=== PATIENT | male | born 1950 | race Caucasian/White ===

== ENCOUNTER → 2017-01-25 | Outpatient (CLI) | payer OTHER, MEDICARE ==
[~2017-01-25] MED LIST: GADOBUTROL 10 ML VIAL IVP ONE
== END ==
LOC: FIMAGING 12:25
PROVIDERS: ATTEND Internal Medicine Hematology & Oncology
DX: R60.0 Localized edema (principal); R93.7 Abnormal findings on diagnostic imaging of other parts of musculoskeletal system; M51.36 Other intervertebral disc degeneration, lumbar region; M47.896 Other spondylosis, lumbar region; Z85.79 Personal history of other malignant neoplasms of lymphoid, hematopoietic and related tissues
CPT/HCPCS: 73723; A9585

== ENCOUNTER → 2017-09-16 | Outpatient (CLI) | payer OTHER, MEDICARE | LOC: FIMAGING 11:08 → FLAB 11:08 → EDSTATUS 11:11 | PROVIDERS: ATTEND Family Medicine | DX: I51.7 Cardiomegaly (principal); I48.91 Unspecified atrial fibrillation; C90.00 Multiple myeloma not having achieved remission ==

== ENCOUNTER → 2017-11-10 | Outpatient (CLI) | payer OTHER, MEDICARE | LOC: FIMAGING 11:31 | PROVIDERS: ATTEND Internal Medicine Hematology & Oncology | DX: Z13.820 Encounter for screening for osteoporosis (principal); M81.0 Age-related osteoporosis without current pathological fracture; C90.02 Multiple myeloma in relapse ==

== ENCOUNTER → 2017-12-10 | Outpatient (CLI) | payer OTHER, MEDICARE | LOC: BHFA 09:15 | PROVIDERS: ATTEND Internal Medicine Cardiovascular Disease | DX: I48.91 Unspecified atrial fibrillation (principal) ==

== ENCOUNTER → 2018-01-04 | Outpatient (CLI) | payer OTHER, MEDICARE | LOC: BHFA 10:45 | PROVIDERS: ATTEND Internal Medicine Cardiovascular Disease | DX: I48.91 Unspecified atrial fibrillation (principal) ==

== ENCOUNTER → 2018-04-16 | Outpatient (CLI) | payer OTHER, MEDICARE | LOC: BHFA 09:30 | PROVIDERS: ATTEND Internal Medicine Cardiovascular Disease | DX: I48.91 Unspecified atrial fibrillation (principal) ==

== ENCOUNTER → 2018-04-29 | Outpatient (CLI) | payer OTHER, MEDICARE | LOC: FIMAGING 12:44 | PROVIDERS: ATTEND Internal Medicine Hematology & Oncology | DX: M75.111 Incomplete rotator cuff tear or rupture of right shoulder, not specified as traumatic (principal); M75.51 Bursitis of right shoulder; D17.79 Benign lipomatous neoplasm of other sites; M75.31 Calcific tendinitis of right shoulder; M24.111 Other articular cartilage disorders, right shoulder | CPT/HCPCS: 73223; A9585 ==

== ENCOUNTER → 2018-08-30 | Outpatient (CLI) | payer OTHER, MEDICARE | LOC: BHFA 13:00 | PROVIDERS: ATTEND Internal Medicine Cardiovascular Disease | DX: I48.91 Unspecified atrial fibrillation (principal) | CPT/HCPCS: 78452; 93017; A9500; J2785 ==

== ENCOUNTER 2018-10-04 08:20 | Observation (INO) | payer OTHER, MEDICARE ==
[2018-10-04] MEDS ORDERED: diphenhydrAMINE 25 MG CAP PO ONE ×2 (08:26→08:41)
[2018-10-04] MEDS ORDERED: NS 1,000 ML IV ONE (08:26)
[2018-10-04] MEDS ORDERED: FAMOTIDINE 20 MG TAB PO ONE (08:26)
[2018-10-04] MEDS ORDERED: ASPIRIN EC 325 MG TAB PO ONE ×2 (08:26→08:41)
[2018-10-04] MEDS ORDERED: DIAZEPAM 5 MG TAB PO ONE (08:26)
[2018-10-04] MEDS ORDERED: FAMOTIDINE 20 MG TAB ONE (08:41)
[2018-10-04] MEDS ORDERED: DIAZEPAM 5 MG TAB ONE (08:41)
[2018-10-04 09:03] LABS: PLATELET COUNT 83 10^3/uL (150-400)
--- NOTE | 2018-10-04 09:11 | PDHPUP ---
History & Physical Update H&P update statement: This history and physical update is based on an assessment of the patient which was completed after admission or registration (within 24 hours), but prior to the surgery/procedure. H&P update: H&P reviewed & patient examined, no change in patient's condition since H&P completed
[2018-10-04 09:21] LABS: PROTIME(PATIENT) 12.8 SEC (12.0-15.0)
[2018-10-04] MEDS ORDERED: LIDOCAINE 1% 300 MG/30 ML SDV ONE (09:30)
[2018-10-04] MEDS ORDERED: IOPAMIDOL (ISOVUE-370) 150 ML BTL IV ONE (09:30)
[2018-10-04] MEDS ORDERED: MIDAZOLAM 2 MG/2 ML VIAL ONE ×2 (09:30→10:55)
[2018-10-04] MEDS ORDERED: fentaNYL 100 MCG/2 ML INJ ONE (09:30)
--- NOTE | 2018-10-04 09:33 | PDPROPOC ---
Sedation Plan of Care Sedation Plan of Care: vital signs stable, mental status noted, patient educated of risks, benefits, alternatives, patient can tolerate sedation ASA Classification: ASA 2 Planned drugs: fentanyl, midazolam Mallampati Score: Class 2 Mallampati Reference Image: Patient passed 3-3-2 rule?: Yes
[2018-10-04] MEDS ORDERED: BIVALIRUDIN 250 MG/5 ML VIAL IV ONE (10:27)
[2018-10-04] MEDS ORDERED: CLOPIDOGREL BISULFATE 75 MG TAB ONE (10:43)
[2018-10-04] MEDS ORDERED: ATROPINE SULFATE 1 MG/10 ML SYR ONE (10:49)
[2018-10-04] MEDS ORDERED: NITROGLYCERIN 1,500 MCG/15 ML VIAL MISC ONE (11:01)
--- NOTE | 2018-10-04 11:27 | PDDXCAT ---
Diagnostic Cath Note - . Date: 10/04/18 Director Of Supply Chain: Eli Indication: other (Chronotropic incompetence. Lqfw-di-[id number] risk nuclear stress test with inferior ischemia) - Procedure Access: right groin Procedure: left heart catheterization, coronary angiography, left ventriculogram - Materials Left Heart Cath size: 6F - Findings-Left Heart Catheterization LM: The left main is normal and bifurcates into the LAD and left circumflex. There is no significant coronary disease in left main LAD: Lad is a large vessel reaching the apex. There is 1 principal 1st diagonal and 3 additional smaller diagonal vessels. No significant disease in the LAD or its branches LCX: RCA is a medium caliber vessel. There is a single large obtuse marginal with 2 subbranches. At the ostium of the sub branch there was a 50% stenosis. The remainder of the left circumflex is normal RCA: The RCA is dominant. It is totally occluded in its midportion. There is a large RV marginal branch. EDP: 21 LVEF: 65% Wall motion: Normal - Findings-Right Heart Catheterization AO: 130/54. There is no aortic stenosis upon pullback from the left ventricle to the aorta. Complications: None Estimated blood loss: <50ml Closure method: Angioseal Assessment: Her moderate obtuse marginal disease and total occlusion of the mid RCA. Interventional consult with Dr. Sibley
[2018-10-04] MEDS ORDERED: ATROPINE SULFATE 1 MG/10 ML SYR IVP PRN (11:44)
[2018-10-04] MEDS ORDERED: OXYCODONE/APAP 5/325 TAB PO PRN (11:44)
[2018-10-04] MEDS ORDERED: ONDANSETRON 4 MG/2 ML VIAL IVP PRN (11:44)
[2018-10-04] MEDS ORDERED: NITROGLYCERIN 0.4 MG BTL SL PRN (11:44)
[2018-10-04] MEDS ORDERED: HYDROCODONE/APAP 5/325 TAB PO PRN (11:44)
--- NOTE | 2018-10-04 13:58 | CPEKG ---
Test Reason : OPEN Blood Pressure : / mmHG Vent. Rate : 029 BPM Atrial Rate : 000 BPM P-R Int : 066 ms QRS Dur : 149 ms QT Int : 682 ms P-R-T Axes : 000 104 -57 degrees QTc Int : 474 ms A-flutter/fibrillation w/ complete AV block Right bundle branch block ST depression, consider ischemia, diffuse lds Confirmed by Robbie Jimenze ([id number]) on 10/04/2018 1:58:01 PM Referred By: Michelle Benitez Confirmed By:Robbie Jimenez
[2018-10-04] MEDS: ATORVASTATIN CALCIUM 40 MG TAB PO SCH (16:35)
--- NOTE | 2018-10-04 17:00 | CPIP ---
[f rep st] INVASIVE CARDIAC PROCEDURE DATE OF PROCEDURE: 10/04/2018 INDICATION FOR PROCEDURE: Positive stress test. PROCEDURE: 1. Right coronary artery angiography. 2. Percutaneous coronary intervention of mid right coronary artery utilizing Synergy 2.25 x 20 and 3 .0 x 16 mm drug-eluting stents. HISTORY: Briefly, this is a 68-year-old male with history of recent positive stress testing, which s howed inferior wall ischemia. Patient underwent diagnostic catheterization by Dr. Michelle Benitez, which s howed what appeared to be 100% occluded mid RCA. Given this finding, patient was consented for percut aneous intervention. DESCRIPTION OF PROCEDURE: After informed consent, and utilizing the same 6-Japanese sheath in the [facility] groin, a JR4 6-Japanese guide catheter was advanced to the right coronary artery. Imaging of the left coronary artery should be referred to Dr. Michelle Benitez's note for full delineation of underlying anato my. A Choice PT wire was advanced after patient was administered an Angiomax bolus and drip and 600 P lavix p.o. The wire actually surprisingly made it through the mid RCA and was placed into a distal ve ssel. We tried predilatation with a 2.0 x 12 balloon multiple times; however, there was still no flow going through the mid RCA. We then used an export catheter for thrombectomy; however, this again did not resolve any flow into the mid RCA. We then proceeded with a 2.0 x12 Euphora balloon, which was a ble to go deeper into the vessel and did multiple sequential inflations. After this was performed, we then revealed what appeared to be a 90% narrowing in the mid RCA going into area of trifurcating RPD , RPLs, all of which were diffusely diseased. Again, we assumed this could be spasm versus diffuse disease, so we decided to proceed now with that vessel was open and we had a clear path to open the distal RCA. A 2.25 x 20 mm Synergy drug eluting s tent was deployed at 11 atmospheres in the distal RCA. This was followed by a 3.0 x 16 Synergy drug e luting stent across an area proximal to this lesion, which was approximately 60% to 70%. After these stents were deployed, angiogram was obtained, which showed excellent patency of the proximal, mid, an d distal RCA; however, the distal RCA going to the trifurcating vessel of the RPD and RPLs, all appea red to be diffusely diseased. The RPDA, itself, had 2 focal lesions notable; however, the flow was no w JAZIEL-3 going through these vessels. At this time, given the fact that all the distal vessels past t he stented areas were diffusely diseased and that they measured approximately 1.0 to 1.5 in size, we decided that no further aggressive intervention would be warranted at this point as there could be lawrence bsequent risk of dissection or perforation. At this time, the guidewire was removed. The guide cathet er was removed over the 0.035 wire. Right groin was closed 6-Japanese is a patient of the procedure wel l with no complications. IMPRESSION: Successful percutaneous coronary intervention of high-grade mid to distal right coronary artery disease with 2 Synergy drug-eluting stents. PLAN: The patient will remain on Plavix and Eliquis for at least a year given his atrial fibrillatio n, now coronary artery disease. He had diffuse distal downstream disease; hence, the longevity of the se stents is questionable; however, there is now JAZIEL-3 flow through multiple small branches distally past the stented areas in the RPDA and RPLS. We will continue the patient with aggressive medical th erapy, i.e. statin as well. He will be kept overnight. He will be discharged within 24 hours. /[id number]/MODL
[2018-10-04] MEDS: GABAPENTIN 300 MG CAP PO SCH (20:14)
--- NOTE | 2018-10-05 07:13 | PDCARPN ---
Cardiology Progress Note Chief Complaint: low HR/AF/CAD Assessment/Plan: Assessment: occluded RCA with distal vessel disease--PCI performed CAF with very low HR/pauses Plan: 10/05/18 07:10 patient has had up too 7 seconds of pauses overnight with HRs in the 10-20 range Asymptmatic however level of bradycardia/pauses very concerning Plan for PPM this AM NPO pt understands risks/possible complications and would like to proceed Subjective: stable Reviewed/Discussed With: multidisciplinary team Time Spent with Patient: greater than 25 minutes Time Spent with Patient: Greater than 25 minutes spent on this patients care, greater than 50% of time spent counseling, educating, and coordinating care regarding the above mentioned plan. Objective: Vital Signs (8 Hrs) Temp Pulse Resp BP Pulse Ox 10/05/18 06:02 36.6 C 40 L 18 148/64 H 96 10/04/18 23:27 36.8 C 39 L 18 118/67 95 Intake/Output (24 Hrs) 10/04/18 10/05/18 10/06/18 05:59 05:59 05:59 Intake Total 1250 Output Total 325 Balance 925 Intake: Oral (ml) 750 IV Intake (ml) 500 Output: Urine (ml) 325 Toilet 325 Other: Weight 108 kg Number of Voids Toilet 1 Result Diagrams: 10/04/18 08:50 10/04/18 08:50 - Physical Exam Constitutional: no apparent distress Eyes: PERRL Ears, Nose, Mouth, Throat: moist mucous membranes Cardiovascular: irregularly irregular Peripheral Pulses: 1+: femoral (R), femoral (L) Respiratory: clear to auscultate bilat Gastrointestinal: normoactive bowel sounds Genitourinary: no suprapubic tenderness Skin: no rashes Musculoskeletal: no muscular tenderness Neurologic: AAOx3 Psychiatric: cooperative ICD10 Worksheet Patient Problems: Problems Problem Status Onset Asystole by electrocardiogram Acute CAD (coronary artery disease) Acute - ICD10 Problem Qualifiers (1) CAD (coronary artery disease) Qualifiers: Coronary Disease-Associated Artery/Lesion type: [place] artery [place] vs. transplanted heart: [place] heart Associated angina: with other forms of angina Qualified Code(s): I25.118 - Atherosclerotic heart disease of [place] coronary artery with other forms of angina pectoris (2) Asystole by electrocardiogram
[2018-10-05] MEDS ORDERED: NS 1,000 ML IV ONE (08:43)
[2018-10-05] MEDS ORDERED: BACITRACIN IRRIGATION/NS 50,000 UNITS/1,000 ML BTL IRR ONE (08:43)
[2018-10-05] MEDS ORDERED: APIXABAN 5 MG TAB PO SCH (09:00)
[2018-10-05] MEDS ORDERED: ceFAZolin 2 GM/DEXTROSE 100 ML IV ONE (09:02)
[2018-10-05] MEDS: CLOPIDOGREL BISULFATE 75 MG TAB PO SCH (10:02)
[2018-10-05] MEDS: GABAPENTIN 300 MG CAP PO SCH ×2 (10:02→20:55)
--- NOTE | 2018-10-05 13:04 | PDCARPN ---
<Becca Esparza - Last Filed: 10/05/18 13:00> Cardiology Progress Note Chief Complaint: Longstanding persistent AF with pauses up to 7 seconds noted on telemetry Assessment/Plan: Assessment: 1. CAD s/p RCA PCI yesterday 2. Longstanding persistent atrial fibrillation 3. Pauses up to 7 seconds on telemetry Plan: We had a complex discussion regarding options for permanent pacing including a traditional pacemaker vs. a Micra leadless pacemaker. Risks and benefits of both types of devices were reviewed with patient and his in detail. Darvin would like to proceed with implant of a Micra leadless pacemaker today. This will be completed this afternoon. Patient meets criteria for single-chamber pacemaker. Options for pacing discussed with the patient included traditional single-chamber pacemaker versus Medtronic MICRA leadless pacemaker. Pros and cons of both were reviewed with the patient. Specifically, the Medtronic MICRA leadless pacemaker has risk of embolization which would need to be retrieved with either a snare or open surgery , has no method of extraction after approximately 6 months post implantation and when battery depletion occurs, new device would need to be implanted. Moreover the device is implanted with a large-bore femoral venous sheath and associated complications of groin bleeding, retroperitoneal bleeding , AV fistula, cardiac tamponade were discussed with the patient. We also discussed that we have less experience with the lead less pacemaker compared to traditional transvenous pacemakers. 10/05/18 13:01 Subjective: No issues overnight, no specific cardiovascular symptoms at present Reviewed/Discussed With: multidisciplinary team Time Spent with Patient: greater than 35 minutes Time Spent with Patient: Greater than 35 minutes spent on this patients care, greater than 50% of time spent counseling, educating, and coordinating care regarding the above mentioned plan. Objective: Vital Signs (8 Hrs) Temp Pulse Resp BP Pulse Ox 10/05/18 11:18 36.5 C 34 L 16 145/74 H 95 10/05/18 07:40 36.5 C 39 L 16 152/67 H 99 10/05/18 06:02 36.6 C 40 L 18 148/64 H 96 Intake/Output (24 Hrs) 10/04/18 10/05/18 10/06/18 05:59 05:59 05:59 Intake Total 1250 Output Total 325 Balance 925 Intake: Oral (ml) 750 IV Intake (ml) 500 Output: Urine (ml) 325 Toilet 325 Other: Weight 108 kg Number of Voids Toilet 1 Result Diagrams: 10/04/18 08:50 10/04/18 08:50 Telemetry: Pauses up to 7 seconds - Physical Exam Constitutional: WDWN, healthy appearing, no apparent distress Respiratory: clear to auscultate bilat, no crackles, no wheezes Gastrointestinal: normoactive bowel sounds, no tenderness, no masses, tenderness Skin: no rashes, no abrasions, no ulcers, warm, no edema Neurologic: AAOx3, CN II-XII grossly intact Psychiatric: cooperative, interactive, following commands, not anxious ICD10 Worksheet Patient Problems: Problems Problem Status Onset Asystole by electrocardiogram Acute CAD (coronary artery disease) Acute <Rigoberto Graham - Last Filed: 10/11/18 08:49> Cardiology Progress Note Assessment/Plan: Addendum Rigoberto Graham MD -patient seen and examined, case discussed with Becca Esparza NP. I have performed all relevant aspects of history, physical exam and review of systems. Patient with history of ventricular pauses, as long as 7 sec. Plan on proceeding with micra pacemaker. Other options including watchful waiting and traditional single-chamber pacemaker were reviewed with the patient. 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 Michelle Benitez. 10/11/18 08:48 Result Diagrams: 10/04/18 08:50 10/04/18 08:50
--- NOTE | 2018-10-05 13:07 | PDGENHP ---
History & Physical Chief Complaint: Pauses up to 7 seconds History of Present Illness: Pauses up to 7 seconds noted on telemetry during current hospitalization. No history of syncope, PMHx includes longstanding persistent atrial fibrillation and CAD s/p RCA PCI yesterday. Last dose of Eliquis was Thursday. Relevant Physical Exam: A&Ox4, no apparent distress, lungs CTA, rhythm irregularly irregular, S1, S2 Cardiorespiratory Assessment: Proceed with implant of Micra leadless PPM today. Transfer to ICU for groin site monitoring overnight
[2018-10-05] MEDS: Lenalidomide [Revlimid] 10 MG PO SCH (13:14)
[2018-10-05] MEDS ORDERED: BUPIVACAINE 0.75% 10 ML SDV ONE (15:37)
[2018-10-05] MEDS ORDERED: HEPARIN 10,000 UNIT/10 ML MDV (1,000 UNIT/ML) ONE (15:37)
[2018-10-05] MEDS ORDERED: LIDOCAINE 1% 300 MG/30 ML SDV ONE (15:37)
[2018-10-05] MEDS ORDERED: IOPAMIDOL (ISOVUE-300) 100 ML BTL ONE (15:37)
--- NOTE | 2018-10-05 15:51 | PDANEPAE ---
ANE Past Medical History - Cardiovascular History Hx Arrhythmias: Yes Hx Coronary Artery / Peripheral Vascular Disease: Yes - Pulmonary History Hx COPD: No Hx Oxygen in Use at Home: No Hx Sleep Apnea: No - Endocrine History Hx Diabetes: No Hypothyroid: No - Renal History Hx Renal Disorders: No - Liver History Hx Hepatic Disorders: No - Neurological & Psychiatric Hx Hx Neurological and Psychiatric Disorders: No - GI History GERD: no Hx Gastrointestinal Disorders: No - Other Health History Other Health History: Multiple Myeloma - Chronic Pain History Chronic Pain: No ANE Review of Systems Review of Systems: ANE Patient History - Allergies Allergies/Adverse Reactions: Sulfa (Sulfonamide Antibiotics) Allergy (Verified 09/30/18 10:33) Rash - Home Medications Home Medications: Acetaminophen [Tylenol 325mg (*)] 325 mg PO DAILY PRN 09/30/18 [Last Taken Unknown] Apixaban [Eliquis] 5 mg PO BID 09/30/18 [Last Taken Unknown] Daratumumab [Darzalex] 0 mg IV Q30D 09/30/18 [Last Taken Unknown] Gabapentin [Neurontin 300 MG (*)] 300 mg PO BID 09/30/18 [Last Taken Unknown] Lenalidomide [Revlimid] 10 mg PO AD 09/30/18 [Last Taken Unknown] Multivitamins [Multivitamin (*)] 1 each PO DAILY 09/30/18 [Last Taken Unknown] - Smoking Hx Smoking Status: Never smoked ANE Labs/Vital Signs - Labs Result Diagrams: 10/04/18 08:50 10/04/18 08:50 - Vital Signs Blood Pressure: 145/74 Heart Rate: 34 Respiratory Rate: 16 O2 Sat (%): 95 Height: 191 cm Weight: 108 kg ANE Physical Exam - Airway Neck exam: FROM Mallampati Score: Class 1 Mouth exam: normal dental/mouth exam - Pulmonary Pulmonary: no respiratory distress, no rales or rhonchi, clear to auscultation - Cardiovascular Cardiovascular: regular rate and rhythym, no murmur, rub, or gallop - ASA Status ASA Status: III ANE Anesthesia Plan Anesthesia Plan: general endotracheal anesthesia
--- NOTE | 2018-10-05 15:51 | POSTANESTH ---
Post Anesthetic Evaluation Cardiovascular Status: Normal, Stable Respiratory Status: Normal, Stable Level of Consciousness/Mental Status: Can Participate in Eval Pain Control: Adequate, Prn Tx Ordered Nausea/Vomiting Control: Adequate, Prn Tx Ordered Complications Possibly Related to Anesthesia: None Noted
[2018-10-05] MEDS ORDERED: DEXAMETHASONE 4 MG/ML VIAL ONE (15:53)
[2018-10-05] MEDS ORDERED: fentaNYL 100 MCG/2 ML INJ ONE (15:53)
[2018-10-05] MEDS ORDERED: ONDANSETRON 4 MG/2 ML VIAL ONE (15:53)
[2018-10-05] MEDS ORDERED: ROCURONIUM 50 MG/5 ML VIAL ONE (15:53)
[2018-10-05] MEDS ORDERED: LIDOCAINE 2% 2 ML INJ ONE (16:30)
[2018-10-05] MEDS ORDERED: ePHEDrine SULFATE 25 MG/5 ML SYR ONE (16:30)
[2018-10-05] MEDS ORDERED: SUGAMMADEX SODIUM 200 MG/2 ML VIAL IVP ONE (17:08)
--- NOTE | 2018-10-05 17:40 | EPPROC ---
Electrophysiology Procedure Note: IMPLANTATION OF MEDTRONIC MICRA LEADLESS PACEMAKER Patient was brought to the EP lab in fasting nonsedated state. Anesthesiologist administered general anesthesia. Right femoral vein was accessed using modified Seldinger technique under ultrasound guidance. A [id number] stitch was placed around the wire. 1 cm incision was made at the entry site and dilated appropriately. 8 Portuguese sheath was placed in the right femoral vein. Venogram was done to confirm appropriate size of vein for large sheath and to rule out anatomic aberrations. All sheath and catheter manipulations were performed under biplane fluoroscopy. Heparin 5000 units was administered intravenously. Moreover heparinized saline was infused through the side port of the Micra sheath at 150 mL/hour. 0.035 in J guidewire was advanced to the superior vena cava. Over this a 5 Portuguese straight glide catheter was advanced into the superior vena cava. J guidewire was exchanged for a [employer] stiff guidewire. Tract was pre-dilated with 14 and 20 Fr dilators. Micra 27 Fr sheath was flushed and advanced to the mid right atrium under fluoroscopy and the guidewire and dilator were removed. Micra delivery system was flushed according to instructions and advanced into the Micra sheath. Micra sheath was pulled back into the inferior vena cava. Micra delivery system was advanced through the tricuspid valve into the right ventricle. Appropriate location for pacemaker placement was identified. Right ventriculogram was performed in two views. Delivery system was advanced further , device was deployed. Multiple cine - angiography views were obtained during tug test to confirm that 2 of 4 tines were appropriately deployed. Device parameters were checked and found to be excellent. Device parameters were re-checked after 5 min and since they were stable, the retaining suture was cut and gently pulled out. Device remained in stable location after suture was removed. Device parameters remained unchanged with expected slight increase in impedance. 27 Portuguese sheath was removed and figure of 8 suture was applied around the femoral access site. Manual pressure was also applied. Patient left the EP lab in stable condition. There were no immediate complications. Device Medtronic Micra [id number] SN [id number] Placement RV Septum R wave 12.9 mV Impedance 630 ohm Threshold 0.88 V @ 0.24 ms Patient Problems: Problems Problem Status Onset CAD (coronary artery disease) Acute Asystole by electrocardiogram Acute
[2018-10-05] MEDS: MULTIVITAMINS 1 EACH TAB PO SCH (17:44)
[2018-10-05] MEDS: ATORVASTATIN CALCIUM 40 MG TAB PO SCH (17:44)
[2018-10-06 08:06] VITALS: BP 136/75
[2018-10-06] MEDS: ATORVASTATIN CALCIUM 40 MG TAB PO SCH (09:15)
[2018-10-06] MEDS: CLOPIDOGREL BISULFATE 75 MG TAB PO SCH (09:15)
[2018-10-06] MEDS: MULTIVITAMINS 1 EACH TAB PO SCH (09:15)
[2018-10-06] MEDS: GABAPENTIN 300 MG CAP PO SCH (09:15)
--- NOTE | 2018-10-06 11:21 | CPEKG ---
Test Reason : OPEN Blood Pressure : / mmHG Vent. Rate : 052 BPM Atrial Rate : 000 BPM P-R Int : 075 ms QRS Dur : 106 ms QT Int : 608 ms P-R-T Axes : 000 -41 064 degrees QTc Int : 566 ms Atrial fibrillation Multiple ventricular premature complexes t, old Prolonged QT interval Confirmed by Naveed Daley ([id number]) on 10/06/2018 11:20:50 AM Referred By: Michelle Benitez Confirmed By:Naveed Daley
--- NOTE | 2018-10-06 11:24 | CPEKG ---
Test Reason : OPEN Blood Pressure : / mmHG Vent. Rate : 048 BPM Atrial Rate : 000 BPM P-R Int : 144 ms QRS Dur : 104 ms QT Int : 627 ms P-R-T Axes : 000 -34 -52 degrees QTc Int : 561 ms Atrial fibrillation Inferior infarct, old Confirmed by Naveed Daley ([id number]) on 10/06/2018 11:23:44 AM Referred By: Michelle Benitez Confirmed By:Naveed Daley
--- NOTE | 2018-10-06 11:25 | ASDISCHSUM ---
Discharge Information Plan Status:Home with No Needs Medically Cleared to Leave:10/06/2018 Discharge Date:10/06/2018 CM D/C Disposition:Home, Routine, Self-Care ADT D/C Disposition:Home, Routine, Self-Care Projected Discharge Date:10/06/2018 Transportation at D/C:Family Discharge Delay Reason: Follow-Up Date:10/06/2018 Discharge Slot: Final Diagnosis: Placement Information Patient Contact Information Contact Name:JHOANA Relationship: Address:[address] [place] [address] Work Phone: City:[place] [facility] Phone: State/Zip Code:[place] [address] Email: Financial Information Financial Class:Medicare Primary Plan Desc:MEDICARE OUTPATIENT Primary Plan Number:[id number] Secondary Plan Desc:[employer] SUPPLEMENT Secondary Plan Number:[id number] Assessment Information LACE LACE Length of stay for Answers: 1 day current admission Acuity / Level of Answers: No Care: Did the patient have an inpatient admission? Comorbidities - select Answers: Coronary Artery Disease all that apply # of Emergency department Answers: 0 visits in the last 6 months Score: 3 Date Signed: 10/06/2018 11:24 AM Electronically Signed By:PEE Cohen Case Management Discharge Plan Note Case Management Discharge Discharge Order Complete? Answers: Yes Patient to Obtain Answers: via Family Medications Transportation Arranged Answers: Family/Friends Discharge Comments Notes: Pt ia 68 yo M who had pacemaker placed. CM spoke with RN, no CM needs identified. Pt discharged independently. is supportive, able to transport. Will follow-up outpatient as indicated. Date Signed: 10/06/2018 11:23 AM Electronically Signed By:PEE Cohen Intervention Information
[2018-10-06] MEDS: Lenalidomide [Revlimid] 10 MG PO SCH (12:05)
--- NOTE | 2018-10-06 13:00 | ECHO ---
[email or web address] [address] [address] Main: [phone] Echocardiography Examination Transthoracic Name: CLIFFORD MILLER MR#: [id number] Study Date: 10/06/2018 Study Time: 08:04 AM Date of : 1950 Age: 68 year(s) Height: 190.5 cm (75 in.) Weight: 107.96 kg (238 lb.) BSA: 2.36 m2 Gender: Male Examination: Echo Contrast: Image Quality: Adequate Rhythm: Heart Rate: BP: / Indication: post EP study Procedure Staff Referring Physician: Aerospace Stress Engineer: Ladi Pedersen JENNIFFER Reading Physician: Macario Jara MD Requesting Provider: Ordering Physician: Rigoberto Graham MD Indication: post EP study Measurements Chambers AV/MV Label Value Normal Value Label Value Normal Value IVSd, 2D 1 cm (0.6cm - 1.1cm) AV PGmax 9 mmHg LVDd, 2D 4.7 cm (4.2cm - 5.9cm) AV Vmax 1.51 m/s LVDs, 2D 3.1 cm (2.1cm - 4cm) MEGAN (continuity eq. 3.1 cm2 LVEF, 2D 62 % (54% - 74%) Vmax) LVEF, BP 60 % (55% - 70%) MV DT 157 ms LVEF, MOD2 51 % (55% - 70%) MV E Vmax 1.03 m/s LVEF, MOD4 77 % (55% - 70%) TV/PV LVOT PGmax 5 mmHg Label Value Normal Value LVOT Vmax 1.11 m/s (0.7m/s - 1.1m/s) PV PGmax 3 mmHg LVOTd 2.3 cm (1.9cm - 2.1cm) PV Vmax, Caliper 0.92 m/s (0.6m/s - 0.9m/s) LVPWd, 2D 0.9 cm (0.6cm - 1cm) RVDd, 2D 5 cm (1.9cm - 3.8cm) TAPSE 2.4 cm LA Area, A2C 24.7 cm2 (0cm2 - 20cm2) LA Volume, A2C 77 ml (18ml - 58ml) LA Volume, A4C 118 ml (16ml - 34ml) LA Volume, BP 99 ml (18ml - 58ml) LAD Index, 2D 1.95 cm/m2 LADs, 2D 4.6 cm (3cm - 4cm) Patient: CLIFFORD MILLER Study Date: 10/06/2018 Page 1 of 3 08:04 AM LAESV index, MOD4 50 ml/m2 RA Area 24 cm2 Additional Vessels Label Value Normal Value AoAsc 3.7 cm AoRoot, 2D 3.5 cm (1.4cm - 2.6cm) Conclusions Left Ventricle: CONCLUSIONS:1)Normal LV size and systolic function with a LVEF of 60%.2)Moderate left atrial and mild right atrial enlargement(s) noted.3)Pacer wires noted in RV.4)Mild to moderate MR without MV prolapse.5)Mild TR noted. Unable to accurately assess PA pressures.6)Mildly enlarged ascending thoracic aorta (3.7cm.)7)No pericardial effusion noted. Findings Left Ventricle: Left ventricle is normal in size. CONCLUSIONS: 1)Normal LV size and systolic function with a LVEF of 60%. 2)Moderate left atrial and mild right atrial enlargement(s) noted. 3)Pacer wires noted in RV. 4)Mild to moderate MR without MV prolapse. 5)Mild TR noted. Unable to accurately assess PA pressures. 6)Mildly enlarged ascending thoracic aorta (3.7cm.) 7)No pericardial effusion noted. The ejection fraction, measured by Simpsons method, is 60 %. Left ventricle wall thickness is normal. There are no regional wall motion abnormalities. Unable to assess Diastolic Dysfunction due to atrial fibrillation/a flutter. Right Ventricle: Normal size right ventricle. Right ventricular wall thickness is normal. Right ventricular systolic function is normal. There is a Micra leadless pacemaker device noted in the RV. Left Atrium: The left atrium is moderately dilated. IAS: Normal appearing atrial septum. Right Atrium: The right atrium is mildly dilated. Mitral Valve: Normal . Mild to moderate mitral regurgitation. No mitral valve stenosis. Aortic Valve: The aortic valve is structurally normal and trileaflet. No aortic valve regurgitation. There is no aortic stenosis. Tricuspid Valve: Tricuspid valve leaflets are normal in appearance and function. Mild tricuspid regurgitation. No tricuspid valve stenosis. Pulmonary artery pressure cannot be assessed due to inadequate TR signal. Pulmonic Valve: Pulmonic leaflets exhibit normal cuspal separation. Trivial pulmonic valve regurgitation is present. There is no pulmonic valve stenosis. Aorta: The aortic root size in 2D measures 3.5 cm. The aortic root exhibits normal size. The ascending aorta measures 3.7 cm. The ascending aorta is borderline dilated. Aorta Measurements AoRoot, 2D is 3.5 cm. Pulmonary Artery: Patient: CLIFFORD MILLER Study Date: 10/06/2018 Page 2 of 3 08:04 AM The pulmonary artery morphology appears normal. IVC: The inferior vena cava is normal in size and course. Pericardium: No pericardial effusion. Exam Details Procedure Ordered: Echo Procedure Status: Routine study Image Quality: Adequate Facility Location: Cardiac Echo 1 (No Signature Object) Patient: CLIFFORD MILLER Study Date: 10/06/2018 Page 3 of 3 08:04 AM [id number]
--- NOTE | 2018-10-07 02:02 | GDS ---
[f rep st] DISCHARGE SUMMARY ADMISSION DIAGNOSES: 1. Permanent atrial fibrillation. 2. Multiple myeloma. 3. Abnormal nuclear imaging stress test. DISCHARGE DIAGNOSES: 1. Coronary artery disease, status post right coronary artery percutaneous coronary intervention. 2. Permanent atrial fibrillation. 3. Ventricular pauses, status post implant of leadless permanent pacemaker. 4. Multiple myeloma. PROCEDURES PERFORMED DURING HOSPITALIZATION: 1. Coronary angiography. 2. RCA PCI with drug-eluting stents. 3. Electrophysiology study. 4. Implant of a leadless permanent pacemaker. 5. Echocardiogram HOSPITAL COURSE: Patient presented 10/04/2018, for coronary angiography in the setting of a recent abnormal nuclear imaging stress test. Coronary angiography with Dr. Connor Sibley demonstrated 90% narrowing of his mid RCA. He underwent successful percutaneous coronary intervention of his high-grade mid-to -distal right coronary artery lesion with placement of 2 drug-eluting stents. Patient subsequently had several pauses up to 7 seconds duration noted on telemetry overnight, and he underwent implantation of a leadless permanent pacemaker with Dr. Rigoberto Graham. He has done very well in the postprocedure setting and has been ambulating around his room this morning without issue. CURRENT PHYSICAL EXAMINATION: GENERAL: Alert and oriented x4. No apparent distress. VITAL SIGNS: Blood pressure 136/75, heart rate 47, respiratory rate 20, SpO2 93% on room air, temp 36.6 degrees Celsius. RESPIRATORY: Lungs are clear to auscultation without adventitious breath sounds. CARDIAC: Normal S1 and S2. No S3 or S4. Rhythm is irregularly irregular. ABDOMEN: Normoactive bowel sounds times all 4 quadrants. No masses or tenderness. Soft to palpation. SKIN: [place], warm, dry without cyanosis, clubbing, or peripheral edema. EXTREMITIES: Right pursestring suture removed intact without evidence of hematoma, redness, oozing, swelling, or warmth. Pulses are 2+ bilaterally. LABORATORY STUDIES: Drawn 10/04/2018, demonstrate WBCs 3.23, RBCs 4.39, CBC otherwise unremarkable. BMP normal. PROCEDURES: Coronary angiogram and implant of leadless permanent pacemaker as mentioned above. Echocardiogram this morning demonstrates normal systolic function at 60%, moderate left atrial and mild right atrial enlargement, mild-to -moderate MR, mild TR, mildly enlarged ascending aorta measuring 3.7 cm, and no evidence of pericardial effusion or wall motion abnormalities. 12-lead ECG this morning demonstrates atrial fibrillation without new ST-T wave or AK interval abnormalities. DISCHARGE DISPOSITION: Patient will be discharged home in stable condition. He is under activity restrictions as below. DISCHARGE MEDICATIONS: Please see discharge medication reconciliation sheet for full details. Please note that patient has been restarted on his Eliquis, and he has also been started on Plavix and atorvastatin. DISCHARGE INSTRUCTIONS: Post cath/PCI and leadless permanent pacemaker instructions were reviewed with patient and his in detail. 1. We discussed activity restrictions including lifting no more than 10 pounds and avoidance of submerged bathing for 10 days. 2. We discussed avoidance of high intensity exertion for the next 30 days. 3. He will get up and walk around every 45 minutes for the next 45 days. 4. We also reviewed bleeding precautions, medication compliance, and monitoring for signs and symptoms of infection or chest discomfort or other symptoms concerning for ischemia. At the time of discharge, patient verbalizes understanding of all discharge instructions without questions or concerns. He has a followup visit with our device clinic and a groin check in 1 week. He will follow up with Dr. Graham and Dr. Michelle Benitez within the next 4 weeks, and he will contact [facility] if he has any new or concerning symptoms prior to his upcoming followup visits. TIME SPENT ON DISCHARGE: Greater than 30 minutes. /[id number]/MODL MTDD
== END 2018-10-06 12:11 | disposition home or self-care (01) ==
LOC: FCATH 08:20 → F2W 11:44 → F2N 10-05 12:51
PROVIDERS: ADMIT Internal Medicine Cardiovascular Disease; ATTEND Internal Medicine Cardiovascular Disease
PROC: 02HK3NZ Insertion of Intracardiac Pacemaker into Right Ventricle, Percutaneous Approach (ICD-10-PCS; principal; 2018-10-04)
PROC: 4A023N7 Measurement of Cardiac Sampling and Pressure, Left Heart, Percutaneous Approach (ICD-10-PCS; principal; 2018-10-04)
PROC: B2151ZZ Fluoroscopy of Left Heart using Low Osmolar Contrast (ICD-10-PCS; principal; 2018-10-04)
PROC: 027034Z Dilation of Coronary Artery, One Artery with Drug-eluting Intraluminal Device, Percutaneous Approach (ICD-10-PCS; principal; 2018-10-04)
DX: I48.1 Persistent atrial fibrillation (principal); Z00.6 Encounter for examination for normal comparison and control in clinical research program; I25.10 Atherosclerotic heart disease of native coronary artery without angina pectoris; C90.00 Multiple myeloma not having achieved remission; Z79.01 Long term (current) use of anticoagulants
CPT/HCPCS: 33274; 93005; 93306; 93458; C1725; C1731; C1757; C1760; C1769; C1786; C1874; C1887; C9600; J0461; J0583; J0690; J1100; J1644; J2250; J2405; J3010; Q9967